=== PATIENT | female | born 1980 | race Hispanic/Latino ===

== ENCOUNTER → 2017-01-13 | Outpatient (CLI) | payer BC | LOC: MW.CHGS 11:31 | PROVIDERS: ATTEND Surgery | DX: N63 Unspecified lump in breast (principal) | CPT/HCPCS: 36415; 85610; 85730 ==

== ENCOUNTER → 2017-01-19 | Outpatient (CLI) | payer BC ==
--- NOTE | 2017-01-19 14:56 | US ---
EXAMINATION: Ultrasound guided left breast biopsy HISTORY: Lump COMPARISON: 12/30/2016 TECHNIQUE: The procedure, risks, and benefits were discussed with the patient. Written informed cons ent was obtained. The overlying area was sterilely prepped and draped. 1% lidocaine was administered for local anesthesia. Using ultrasound guidance a total of 5 14-gauge core biopsies were obtained. The first few samples demonstrated a white cloudy liquid, likely representing a galactocele. A clip was placed following the procedure. IMPRESSION: Successful ultrasound-guided biopsy of a left breast mass.
== END | disposition home or self-care (01) ==
LOC: MW.US 10:20
PROVIDERS: ATTEND Surgery
DX: N60.42 Mammary duct ectasia of left breast (principal); N60.12 Diffuse cystic mastopathy of left breast
CPT/HCPCS: 19083-LT; 88305

== ENCOUNTER 2020-03-05 08:57 | Day surgery (SDC) | payer OTHER ==
[~2020-03-05 08:57] MED LIST: Lactated Ringers 1,000 ML IV SCH; Sodium Chloride 0.9% 10 ML SDV IV PRN; Sodium Chloride 0.9% 10 ML Syringe FLUSH PRN; Sodium Chloride 0.9% 2.5 ML Syringe FLUSH PRN
[2020-03-05 09:36] VITALS: BP 113/72; PULSE 57
--- NOTE | 2020-03-05 12:35 | PCM.SN.2 ---
- Free Text/Narrative Note: Patient is a 39 year old female who presented today for a diagnostic EGD and colonoscopy. She has known low platelets. Previously she stated that she had been worked up by a high school business teacher who did not come up with a diagnosis. I agreed to schedule the case, but we would get a CBC prior to the case. She had a CBC yesterday. This showed a plt count of 53. It has never been this low before. I talked to our blood bank. Platelets would have to be ordered and would be here the next day. She has not followed up with her high school business teacher in some time. After discussing this, the patient remembered that she was told she had "ITP". I visited with the patient. She is at risk of bleeding from her biopsy sites and with no platelets to give her in house, this could have serious bleeding complications. I offered to order the platelets today and perform the procedure tomorrow with platelets running. The patient declined having the procedure done at this time or in the near future. Instead, we discussed starting a PPI in case her abdominal discomfort in case this is gastritis and getting a HIDA scan to rule out biliary dyskinesia. She will also need to be seen by her high school business teacher for follow up. I will then follow up with her in clinic afterwards. I prescribed omeprazole 20mg daily for one month. Will coordinate with my nurse for hematology referral and HIDA scan.
== END 2020-03-05 10:40 | disposition home or self-care (01) ==
LOC: MW.SDS 08:57
PROVIDERS: ATTEND Surgery
DX: D69.6 Thrombocytopenia, unspecified (principal); Z53.09 Procedure and treatment not carried out because of other contraindication
CPT/HCPCS: 81025; J7120

== ENCOUNTER 2021-06-11 05:00 | Inpatient (IN) | payer OTHER ==
[2021-06-11] MEDS ORDERED: Terbutaline 1 MG/ML SDV SUBCUT PRN (05:37)
[2021-06-11] MEDS ORDERED: Sodium Chloride 0.9% 10 ML SDV IV PRN (05:39)
[2021-06-11] MEDS ORDERED: Carboprost Tromethamine 250 MCG/1 ML Amp IM PRN (05:39)
[2021-06-11] MEDS ORDERED: Methylergonovine 0.2 MG/1 ML Amp IM PRN ×2 (05:39→18:01)
[2021-06-11] MEDS ORDERED: Tranexamic Acid 1,000 MG in Sodium Chloride 0.9% 100 ML IV PRN ×2 (05:39→18:01)
[2021-06-11] MEDS ORDERED: Water For Irrigation,Sterile 1,000 ML Container IRR PRN (05:39)
[2021-06-11] MEDS ORDERED: Lidocaine 1% 50 ML MDV INJECT PRN (05:39)
[2021-06-11] MEDS ORDERED: Sodium Chloride 0.9% 10 ML Syringe FLUSH PRN (05:39)
[2021-06-11] MEDS ORDERED: Nalbuphine 10 MG/1 ML Vial IVPUSH PRN (05:39)
[2021-06-11] MEDS ORDERED: Sodium Chloride 0.9% 2.5 ML Syringe FLUSH PRN (05:39)
[2021-06-11] MEDS ORDERED: Ondansetron 4 MG/2 ML SDV IVPUSH PRN (05:39)
[2021-06-11] MEDS ORDERED: Misoprostol 200 MCG Tab PO PRN (05:39)
[2021-06-11] MEDS ORDERED: Butorphanol 1 MG/ML SDV IVPUSH PRN (05:39)
[2021-06-11] MEDS ORDERED: Oxytocin/0.9 % Sodium Chloride 30 UNIT/500 ML BAG IV SCH ×2 (05:45)
[2021-06-11] MEDS ORDERED: Misoprostol 25 MCG (1/4 of 100 MCG) Tab VAG PRN ×2 (06:00→12:00)
[2021-06-11] MEDS: Lactated Ringers 1,000 ML IV SCH ×2 (06:52→08:18)
[2021-06-11] MEDS ORDERED: Ropivacaine HCl/PF 200 ML ONE (09:22)
--- NOTE | 2021-06-11 09:48 | PCM.PREANE ---
Preanesthetic Assessment - Anesthesia/Transfusion/Family Hx Anesthesia History: Prior Anesthesia Without Reaction Family History of Anesthesia Reaction: No Transfusion History: No Prior Transfusion(s) - Review of Systems General: No Symptoms Pulmonary: No Symptoms Cardiovascular: No Symptoms Gastrointestinal: No Symptoms Neurological: No Symptoms Other: Reports: None - Physical Assessment Height: 5 ft 2 in Weight: 228 lb ASA Class: 2 Mental Status: Alert & Oriented x3 Airway Class: Mallampati = 3 Dentition: Reports: Normal Dentition ROM/Head Extension: Full Lungs: Clear to Auscultation, Normal Respiratory Effort Cardiovascular: Regular Rate, Regular Rhythm - Lab Values: Laboratory Last Values WBC 11.59 K/uL (4.0-11.0) H 06/11/21 06:33 RBC 4.21 M/uL (4.30-5.90) L 06/11/21 06:33 Hgb 12.5 g/dL (12.0-16.0) 06/11/21 06:33 Hct 36.8 % (36.0-46.0) 06/11/21 06:33 MCV 87.4 fL (80.0-98.0) 06/11/21 06:33 MCH 29.7 pg (27.0-32.0) 06/11/21 06:33 MCHC 34.0 g/dL (31.0-37.0) 06/11/21 06:33 RDW Std Deviation 44.6 fl (28.0-62.0) 06/11/21 06:33 RDW Coeff of Alli 14 % (11.0-15.0) 06/11/21 06:33 Plt Count 112 K/uL (150-400) L 06/11/21 06:33 MPV 12.70 fL (7.40-12.00) H 06/11/21 06:33 Nucleated RBC % 0.2 /100WBC 06/11/21 06:33 Nucleated RBCs # 0 K/uL 06/11/21 06:33 SARS-CoV-2 RNA (JAYCOB) NEGATIVE (NEGATIVE) 06/11/21 06:10 Blood Type O POSITIVE 06/11/21 06:33 Antibody Screen NEGATIVE 06/11/21 06:33 - Allergies Allergies/Adverse Reactions: Allergies Allergy/AdvReac Type Severity Reaction Status Date / Time almond Allergy Mild Other Verified 06/11/21 07:41 avacado Allergy Mild Other Uncoded 06/11/21 07:41 - Blood Blood Available: Yes Product(s) Available: PRBC, FFP, Platelets - Anesthesia Plan Pre-Op Medication Ordered: None - Acknowledgements Anesthesia Type Planned: Epidural Pt an Appropriate Candidate for the Planned Anesthesia: Yes Alternatives and Risks of Anesthesia Discussed w Pt/Guardian: Yes Pt/Guardian Understands and Agrees with Anesthesia Plan: Yes PreAnesthesia Questionnaire - Past Health History Medical/Surgical History: Denies Medical/Surgical History HEENT History: Reports: Other (See Below) Other HEENT History: wears glasses Cardiovascular History: Reports: None Respiratory History: Reports: None Gastrointestinal History: Reports: Other (See Below) Other Gastrointestinal History: occasional heartburn Genitourinary History: Reports: None LAMINATION SPINNER History: Reports: Endometriosis, Musculoskeletal History: Reports: None Neurological History: Reports: None Psychiatric History: Reports: None Endocrine/Metabolic History: Reports: Hypothyroidism, Obesity/BMI 30+ Hematologic History: Reports: Idiopathic Thrombocytopenia Immunologic History: Reports: None Oncologic (Cancer) History: Reports: None Dermatologic History: Reports: None - Infectious Disease History Infectious Disease History: Reports: None - Past Surgical History Head Surgeries/Procedures: Reports: None HEENT Surgical History: Reports: None Cardiovascular Surgical History: Reports: None Respiratory Surgical History: Reports: None GI Surgical History: Reports: Cholecystectomy Other GI Surgeries/Procedures: Cholecystectomy - 2011 Female Surgical History: Reports: Other (See Below) Other Female Surgeries/Procedures: Endometriosis Endocrine Surgical History: Reports: None Neurological Surgical History: Reports: None Musculoskeletal Surgical History: Reports: None Oncologic Surgical History: Reports: None Dermatological Surgical History: Reports: None - HOME MEDS Home Medications: Home Meds Levothyroxine 150 mcg PO DAILY 02/29/20 [History] Pnv No.95/Ferrous Fum/Folic AC [ Vitamin Tablet] 1 each PO DAILY 06/11/21 [History] - CURRENT (IN HOUSE) MEDS Current Meds: Current Medications Butorphanol Tartrate (Butorphanol 1 Mg/Ml Sdv) 1 mg IVPUSH Q1H PRN PRN Reason: Pain (severe 7-10) Carboprost Tromethamine (Carboprost Tromethamine 250 Mcg/1 Ml Amp) 250 mcg IM ASDIRECTED PRN PRN Reason: Post Hemorrhage Oxytocin/Sodium Chloride (Oxytocin 30 Unit/500 Ml-Ns) 30 unit in 500 mls @ 2 ml s/hr IV TITRATE VANITA; Protocol Last Titration: 06/11/21 08:40 Dose: 4 munits/min, 4 mls/hr Documented by: Lactated Ringer's (Ringers, Lactated) 1,000 mls @ 150 mls/hr IV ASDIRECTED VANITA Last Admin: 06/11/21 08:18 Dose: 150 mls/hr Documented by: Oxytocin/Sodium Chloride (Oxytocin 30 Unit/500 Ml-Ns) 30 unit in 500 mls @ 999 mls/hr IV TITRATE VANITA Tranexamic Acid 1,000 mg/ (Sodium Chloride) 110 mls @ 660 mls/hr IV ONETIME PRN PRN Reason: Bleeding Lidocaine HCl (Lidocaine 1% 50 Ml Mdv) 50 ml INJECT ONETIME PRN PRN Reason: Laceration repair Methylergonovine Maleate (Methylergonovine 0.2 Mg/1 Ml Amp) 0.2 mg IM ASDIRECTED PRN PRN Reason: Post Hemorrhage Misoprostol (Misoprostol 25 Mcg (1/4 Of 100 Mcg) Tab) 25 mcg VAG ONETIME PRN PRN Reason: Cervical Ripening Misoprostol (Misoprostol 25 Mcg (1/4 Of 100 Mcg) Tab) 25 mcg VAG Q4H PRN PRN Reason: Cervical Ripening Misoprostol (Misoprostol 200 Mcg Tab) 200 mcg PO ONETIME PRN PRN Reason: Post Hemorrhage Nalbuphine HCl (Nalbuphine 10 Mg/1 Ml Vial) 10 mg IVPUSH Q1H PRN PRN Reason: Pain (severe 7-10) Ondansetron HCl (Ondansetron 4 Mg/2 Ml Sdv) 4 mg IVPUSH Q6H PRN PRN Reason: Nausea/Vomiting Sodium Chloride (Sodium Chloride 0.9% 10 Ml Syringe) 10 ml FLUSH ASDIRECTED PRN PRN Reason: Keep Vein Open Sodium Chloride (Sodium Chloride 0.9% 2.5 Ml Syringe) 2.5 ml FLUSH ASDIRECTED PRN PRN Reason: Keep Vein Open Sodium Chloride (Sodium Chloride 0.9% 10 Ml Sdv) 10 ml IV ASDIRECTED PRN PRN Reason: IV Use Sterile Water (Water For Irrigation,Sterile 1,000 Ml Container) 1,000 ml IRR ASDIRECTED PRN PRN Reason: delivery Terbutaline Sulfate (Terbutaline 1 Mg/Ml Sdv) 0.25 mg SUBCUT ASDIRECTED PRN PRN Reason: Tacysystole Discontinued Medications Ropivacaine (Naropin 0.2%) Confirm Administered Dose 200 mls @ as directed .ROUTE .[employer]-MED ONE Stop: 06/11/21 09:23 - Pre-Procedure Checklist Attending Provider Aware: Yes Chart Reviewed: Yes Consent Signed: Yes Labs Reviewed: Yes VS/FHR Reviewed: Yes Patient Identification Confirmation Method: Reports: Verbal Patient Pt an Appropriate Candidate for the Planned Anesthesia: Yes Alternatives and Risks of Anesthesia Discussed w Pt/Guardian: Yes - Procedure Procedure Start Date: 06/11/21 Procedure Start Time: 09:[address]: Reports: Blood Pressure, Heart Rate, SPO2 Functional IV: Yes Safety Measures: Reports: Patient Identified, Procedure Verified, Site Verified, Procedure Time Out Patient Position: Reports: Sitting Prep: Reports: Betadine x3, Sterile Drape Local Anesthetic: Reports: Intradermal Wheal w Lidocaine 1% Regional Placement Level: Reports: L3-4 Needle: Reports: 17 g Touhy Approach: Reports: Midline Technique: Reports: ABHINAV Plastic Syringe Parasthesia: Reports: None Fluid Obtained: Reports: None Test Dose Time: 09:32 Test Dose Medication: Reports: Lidocaine 1.5% w Epinephrine 1:200,000 Test Dose Response: Reports: Negative Loading Dose Time: 09:30 Loading Dose Medication: bupivicaine 0.25% 10cc Loading Dose Patient Position: sitting Continuous Infusion Start Time: 09:35 Continuous Infusion Medication: ropivicaine 0.2% Continuous Infusion Rate: 16 Continuous Infusion PCS Bolus Option: 4 VS and FHR Monitored in Unit Post Placement: Yes Procedure End Date: 06/11/21 Procedure End Time: 10:27
--- NOTE | 2021-06-11 09:50 | PCM.POSTAN ---
POST ANESTHESIA ASSESSMENT - MENTAL STATUS Mental Status: Alert, Oriented - RESPIRATORY Respiratory Status: Respiratory Rate WNL, Airway Patent, O2 Saturation Stable - CARDIOVASCULAR CV Status: Pulse Rate WNL, Blood Pressure Stable - GASTROINTESTINAL GI Status: No Symptoms - POST OP HYDRATION Hydration Status: Adequate & Stable
[2021-06-11] MEDS ORDERED: Docusate Sodium 100 MG Cap PO PRN (18:01)
[2021-06-11] MEDS ORDERED: Ibuprofen 400 MG Tab PO PRN (18:01)
[2021-06-11] MEDS ORDERED: Witch Hazel Medicated Pads 40/Jar TOP PRN (18:01)
[2021-06-11] MEDS ORDERED: Lanolin 100% Cream 7 GM Tube TOP PRN (18:01)
[2021-06-11] MEDS ORDERED: Bisacodyl 10 MG Supp RECTAL PRN (18:01)
[2021-06-11] MEDS ORDERED: Acetaminophen 500 MG Tab PO PRN (18:01)
[2021-06-11] MEDS ORDERED: Benzocaine/Menthol 20%-0.5% Spray 78 GM Cannister TOP PRN (18:01)
[2021-06-11] MEDS ORDERED: Ibuprofen 800 MG Tab PO PRN (18:01)
--- NOTE | 2021-06-11 18:03 | PCM.DEL ---
L & D Note - General Info Date of Service: 06/11/21 Mother's Due Date: 06/13/21 - Delivery Note Labor: Augmented by Oxytocin, Induced by Oxytocin Delivery Outcome: Livebirth Delivery Method: Spontaneous Vaginal Delivery-Single Presentation: Left Occiput Anterior ([place]) Nuchal Cord: Reduced Anesthesia Type: Epidural Amniotic Fluid Description: Clear Episiotomy Type: None Laceration: None Placenta: Intact, Spontaneous Estimated Blood Loss: 200 Resuscitation Needed: No : Bulb Syringe Score 1 min: 8 Score 5 min: 9 Delivery Comments (Free Text/Narrative):: 40-year-old female at 39w5d for scheduled induction of labor s/p uncomplicated vaginal delivery. complicated by advanced maternal age and thrombocytopenia. GBS negative. Viable male. Apgars 8 and 9, weight 3290 grams. - General Info Date of Service: 06/11/21 - Patient Data Weight - Most Recent: 103.419 kg Lab Results Last 24 Hours: Laboratory Results - last 24 hr 06/11/21 06/11/21 06/11/21 Range/Units 06:10 06:33 06:33 WBC 11.59 H (4.0-11.0) K/uL RBC 4.21 L (4.30-5.90) M/uL Hgb 12.5 (12.0-16.0) g/dL Hct 36.8 (36.0-46.0) % MCV 87.4 (80.0-98.0) fL MCH 29.7 (27.0-32.0) pg MCHC 34.0 (31.0-37.0) g/dL RDW Std Deviation 44.6 (28.0-62.0) fl RDW Coeff of Alli 14 (11.0-15.0) % Plt Count 112 L (150-400) K/uL MPV 12.70 H (7.40-12.00) fL Nucleated RBC % 0.2 /100WBC Nucleated RBCs # 0 K/uL SARS-CoV-2 RNA (JAYCOB) NEGATIVE (NEGATIVE) Blood Type O POSITIVE Antibody Screen NEGATIVE Med Orders - Current: Current Medications Butorphanol Tartrate (Butorphanol 1 Mg/Ml Sdv) 1 mg IVPUSH Q1H PRN PRN Reason: Pain (severe 7-10) Carboprost Tromethamine (Carboprost Tromethamine 250 Mcg/1 Ml Amp) 250 mcg IM ASDIRECTED PRN PRN Reason: Post Hemorrhage Oxytocin/Sodium Chloride (Oxytocin 30 Unit/500 Ml-Ns) 30 unit in 500 mls @ 2 mls/hr IV TITRATE VANITA; Protocol Last Titration: 06/11/21 11:42 Dose: 14 munits/min, 14 mls/hr Documented by: Lactated Ringer's (Ringers, Lactated) 1,000 mls @ 150 mls/hr IV ASDIRECTED VANITA Last Admin: 06/11/21 08:18 Dose: 150 mls/hr Documented by: Oxytocin/Sodium Chloride (Oxytocin 30 Unit/500 Ml-Ns) 30 unit in 500 mls @ 999 mls/hr IV TITRATE VANITA Tranexamic Acid 1,000 mg/ (Sodium Chloride) 110 mls @ 660 mls/hr IV ONETIME PRN PRN Reason: Bleeding Lidocaine HCl (Lidocaine 1% 50 Ml Mdv) 50 ml INJECT ONETIME PRN PRN Reason: Laceration repair Methylergonovine Maleate (Methylergonovine 0.2 Mg/1 Ml Amp) 0.2 mg IM ASDIRECTED PRN PRN Reason: Post Hemorrhage Misoprostol (Misoprostol 25 Mcg (1/4 Of 100 Mcg) Tab) 25 mcg VAG ONETIME PRN PRN Reason: Cervical Ripening Misoprostol (Misoprostol 25 Mcg (1/4 Of 100 Mcg) Tab) 25 mcg VAG Q4H PRN PRN Reason: Cervical Ripening Misoprostol (Misoprostol 200 Mcg Tab) 200 mcg PO ONETIME PRN PRN Reason: Post Hemorrhage Nalbuphine HCl (Nalbuphine 10 Mg/1 Ml Vial) 10 mg IVPUSH Q1H PRN PRN Reason: Pain (severe 7-10) Ondansetron HCl (Ondansetron 4 Mg/2 Ml Sdv) 4 mg IVPUSH Q6H PRN PRN Reason: Nausea/Vomiting Sodium Chloride (Sodium Chloride 0.9% 10 Ml Syringe) 10 ml FLUSH ASDIRECTED PRN PRN Reason: Keep Vein Open Sodium Chloride (Sodium Chloride 0.9% 2.5 Ml Syringe) 2.5 ml FLUSH ASDIRECTED PRN PRN Reason: Keep Vein Open Sodium Chloride (Sodium Chloride 0.9% 10 Ml Sdv) 10 ml IV ASDIRECTED PRN PRN Reason: IV Use Sterile Water (Water For Irrigation,Sterile 1,000 Ml Container) 1,000 ml IRR ASDIRECTED PRN PRN Reason: delivery Terbutaline Sulfate (Terbutaline 1 Mg/Ml Sdv) 0.25 mg SUBCUT ASDIRECTED PRN PRN Reason: Tacysystole Discontinued Medications Ropivacaine (Naropin 0.2%) Confirm Administered Dose 200 mls @ as directed .ROUTE .[facility]-MED ONE Stop: 06/11/21 09:23 - Problem List & Annotations (1) Vaginal delivery SNOMED Code(s): 534573815 Code(s): O80 - ENCOUNTER FOR FULL-TERM UNCOMPLICATED DELIVERY Status: Acute Current Visit: Yes - Problem List Review Problem List Initiated/Reviewed/Updated: Yes - Assessment Assessment:: 40-year-old female at 39w5d presents for scheduled induction of labor s/p uncomplicated vaginal delivery. complicated by advanced maternal age and thrombocytopenia. GBS negative. Blood type O+. Platelets 112. Viable male. Apgars 8 and 9, weight 3290 grams. - Plan Plan:: - Fundal checks every 2 hours - Aspirin/tylenol for pain - Regular diet - Encourage ambulation - CBC in the am
--- NOTE | 2021-06-11 21:33 | OR ---
SURGEON: Sofya Serra M.D. DATE OF PROCEDURE: 06/11/2021 PREOPERATIVE DIAGNOSES: A 39 week intrauterine , thrombocytopenia , advanced maternal age. POSTOPERATIVE DIAGNOSES: A 39 week intrauterine , thrombocytopenia, advanced maternal age. PROCEDURES: Pitocin induction of labor, artificial rupture of membranes, term spontaneous vaginal delivery. PRIMARY SURGEON: Sofya Serra M.D. SOCIAL SERVICE TECHNICIAN: JOSE FRANCISCO Templeton. ANESTHESIA: Epidural. ESTIMATED BLOOD LOSS: Less than 300 mL. FINDINGS: Live-born male. scores 8 and 9, weight is pending at the time of dictation. Placenta spontaneous, Schultze intact, with 3 vessels. Perineum intact. COMPLICATIONS: None known. DISPOSITION: Stable to Recovery. BRIEF HISTORY: This is a 40-year-old female, G5, P 3-0-1-3. She presents at 39 weeks' gestation for induction of labor. She has a known history of thrombocytopenia. She has had platelets below 50,000 on a regular basis in the past. At the end of , her platelets have improved to 80,000 to 90,000, and on admission was at 112,000. She has been seeing a supervisor [employer]; however, she became after visit with him. She was offered splenectomy, however, declined. She has had otherwise an uncomplicated care. She is known to be advanced maternal age. She has had recommended testing. However, she has declined her recent biophysical profile. She presents for induction of labor, 3 cm, 50%, -3 station. Pitocin was initiated. She is group B strep negative. She had category 1 heart tones. When she was 4 to 5 cm dilated, she had artificial rupture of membranes with clear fluid noted. She progressed to complete. DESCRIPTION OF PROCEDURE: With the patient in the dorsal lithotomy position, the patient pushed to a 5+ station over 3 contractions. At that time, the head did not proceed over the perineum. Therefore, the patient's head was placed in the supine position. The Gia manoeuvre was performed. Suprapubic pressure was performed, and the shoulder was delivered without significant difficulty, with subsequent delivery of the 's posterior shoulder and body. There was a partial nuchal cord which was reduced. The was handed to the mother in the presence of the nurse attending delivery. The infant is a liveborn male, scores 8 and 9, weight is pending at the time of dictation. After 1 minute, the cord was doubly clamped and cut. Cord blood was collected for cord ABGs as well as routine cord blood sampling. Pitocin was initiated after delivery of the infant to assist with delivery of the placenta, which was delivered spontaneously, Schultze intact, with 3 vessels. Upon inspection of the pelvis and perineum, there were no periurethral, vaginal sidewall, cervical, perineal, or rectal lacerations. EBL is less than 300 mL. There were no complications. Mother and baby remained in LDR in good condition. EDWARD / MANUELA /[id number] ELIZABETH
[2021-06-12] MEDS: Acetaminophen 500 MG Tab PO PRN ×2 (01:13→08:28)
--- NOTE | 2021-06-12 07:29 | PCM.PNPP ---
<Janelle Hopper - Last Filed: 06/12/21 07:42> - General Info Date of Service: 06/12/21 Admission Dx/Problem (Free Text): Induction of labor Subjective Update: Only concern overnight was the anesthesia wearing off. She endorsed anxiety with loss of sensation until midnight. No current concerns. Appears to be doing well. Some light vaginal bleeding. Pain controlled. Ambulating, urinating, and tolerating food well. . - Review of Systems General: Reports: No Symptoms HEENT: Reports: No Symptoms Pulmonary: Reports: No Symptoms Cardiovascular: Reports: No Symptoms Gastrointestinal: Reports: No Symptoms Genitourinary: Reports: No Symptoms Musculoskeletal: Reports: No Symptoms Skin: Reports: No Symptoms Neurological: Reports: No Symptoms Psychiatric: Reports: No Symptoms - General Info Date of Service: 06/12/21 - Patient Data Vital Signs - Most Recent: Last Vital Signs Temp 36.6 C 06/12/21 07:22 Pulse 61 06/12/21 07:22 Resp 18 06/12/21 07:22 BP 114/70 06/12/21 07:22 Pulse Ox 96 06/12/21 07:22 Weight - Most Recent: 103.419 kg I&O - Last 24 Hours: Intake & Output 06/11/21 06/12/21 06/12/21 22:59 06:59 14:59 Output Total 1250 Balance -1250 Lab Results - Last 24 Hours: Laboratory Results - last 24 hr 06/11/21 06/11/21 06/11/21 Range/Units 06:10 06:33 17:28 Hgb (12.0-16.0) g/dL Hct (36.0-46.0) % Cord ABG pH 7.263 (7.18-7.38) Cord ABG Base Excess -9 (-10--2) Cord VBG pH 7.249 L (7.25-7.45) Cord VBG Base Excess -7 (-10--2) SARS-CoV-2 RNA (JAYCOB) NEGATIVE (NEGATIVE) Blood Type O POSITIVE Antibody Screen NEGATIVE 06/12/21 Range/Units 05:47 Hgb 11.2 L (12.0-16.0) g/dL Hct 32.8 L (36.0-46.0) % Cord ABG pH (7.18-7.38) Cord ABG Base Excess (-10--2) Cord VBG pH (7.25-7.45) Cord VBG Base Excess (-10--2) SARS-CoV-2 RNA (JAYCOB) (NEGATIVE) Blood Type Antibody Screen Med Orders - Current: Current Medications Acetaminophen (Acetaminophen 500 Mg Tab) 500 mg PO Q4H PRN PRN Reason: Pain (mild 1-3) Acetaminophen (Acetaminophen 500 Mg Tab) 1,000 mg PO Q4H PRN PRN Reason: Pain (mild 1-3) Last Admin: 06/12/21 01:13 Dose: 1,000 mg Documented by: Benzocaine/Menthol (Benzocaine/Menthol 20%-0.5% [place] 78 Gm Cannister) 78 gm TOP ASDIRECTED PRN PRN Reason: Perineal Comfort Measure Last Admin: 06/11/21 20:21 Dose: 1 can Documented by: Bisacodyl (Bisacodyl 10 Mg Supp) 10 mg RECTAL ONETIME PRN PRN Reason: Constipation Docusate Sodium (Docusate Sodium 100 Mg Cap) 100 mg PO Q12H PRN PRN Reason: Constipation Emollient Ointment (Lanolin 100% Cream 7 Gm Tube) 0 gm TOP ASDIRECTED PRN PRN Reason: Sore Nipples Last Admin: 06/11/21 20:21 Dose: 7 gm Documented by: Tranexamic Acid 1,000 mg/ (Sodium Chloride) 110 mls @ 660 mls/hr IV ONETIME PRN PRN Reason: Bleeding Ibuprofen (Ibuprofen 400 Mg Tab) 400 mg PO Q4H PRN PRN Reason: Pain (mild 1-3) Ibuprofen (Ibuprofen 800 Mg Tab) 800 mg PO Q6H PRN PRN Reason: Pain (mild 1-3) Last Admin: 06/11/21 20:22 Dose: 800 mg Documented by: Levothyroxine Sodium (Levothyroxine 150 Mcg Tab) 150 mcg PO DAILY VANITA Methylergonovine Maleate (Methylergonovine 0.2 Mg/1 Ml Amp) 0.2 mg IM ONETIME PRN PRN Reason: Excessive Vaginal Bleeding Prenat Multivit/[place]/Iron/Folic Ac ( Multivitamin With Calcium/Folic Acid/Iron Tab) 1 each PO DAILY VANITA Mahin Monica (Witch Monica Medicated Pads 40/Jar) 1 pad TOP ASDIRECTED PRN PRN Reason: comfort care Last Admin: 06/11/21 20:22 Dose: 1 tub Documented by: Discontinued Medications Butorphanol Tartrate (Butorphanol 1 Mg/Ml Sdv) 1 mg IVPUSH Q1H PRN PRN Reason: Pain (severe 7-10) Carboprost Tromethamine (Carboprost Tromethamine 250 Mcg/1 Ml Amp) 250 mcg IM ASDIRECTED PRN PRN Reason: Post Hemorrhage Oxytocin/Sodium Chloride (Oxytocin 30 Unit/500 Ml-Ns) 30 unit in 500 mls @ 2 mls/hr IV TITRATE VANITA; Protocol Last Titration: 06/11/21 17:35 Dose: 500 munits/min, 500 mls/hr Documented by: Lactated Ringer's (Ringers, Lactated) 1,000 mls @ 150 mls/hr IV ASDIRECTED VANITA Last Admin: 06/11/21 08:18 Dose: 150 mls/hr Documented by: Oxytocin/Sodium Chloride (Oxytocin 30 Unit/500 Ml-Ns) 30 unit in 500 mls @ 999 mls/hr IV TITRATE VANITA Tranexamic Acid 1,000 mg/ (Sodium Chloride) 110 mls @ 660 mls/hr IV ONETIME PRN PRN Reason: Bleeding Ropivacaine (Naropin 0.2%) Confirm Administered Dose 200 mls @ as directed .ROUTE .[facility] Stop: 06/11/21 09:23 Lidocaine HCl (Lidocaine 1% 50 Ml Mdv) 50 ml INJECT ONETIME PRN PRN Reason: Laceration repair Methylergonovine Maleate (Methylergonovine 0.2 Mg/1 Ml Amp) 0.2 mg IM ASDIRECTED PRN PRN Reason: Post Hemorrhage Misoprostol (Misoprostol 25 Mcg (1/4 Of 100 Mcg) Tab) 25 mcg VAG ONETIME PRN PRN Reason: Cervical Ripening Misoprostol (Misoprostol 25 Mcg (1/4 Of 100 Mcg) Tab) 25 mcg VAG Q4H PRN PRN Reason: Cervical Ripening Misoprostol (Misoprostol 200 Mcg Tab) 200 mcg PO ONETIME PRN PRN Reason: Post Hemorrhage Nalbuphine HCl (Nalbuphine 10 Mg/1 Ml Vial) 10 mg IVPUSH Q1H PRN PRN Reason: Pain (severe 7-10) Ondansetron HCl (Ondansetron 4 Mg/2 Ml Sdv) 4 mg IVPUSH Q6H PRN PRN Reason: Nausea/Vomiting Sodium Chloride (Sodium Chloride 0.9% 10 Ml Syringe) 10 ml FLUSH ASDIRECTED PRN PRN Reason: Keep Vein Open Sodium Chloride (Sodium Chloride 0.9% 2.5 Ml Syringe) 2.5 ml FLUSH ASDIRECTED PRN PRN Reason: Keep Vein Open Sodium Chloride (Sodium Chloride 0.9% 10 Ml Sdv) 10 ml IV ASDIRECTED PRN PRN Reason: IV Use Sterile Water (Water For Irrigation,Sterile 1,000 Ml Container) 1,000 ml IRR ASDIRECTED PRN PRN Reason: delivery Terbutaline Sulfate (Terbutaline 1 Mg/Ml Sdv) 0.25 mg SUBCUT ASDIRECTED PRN PRN Reason: Tacysystole - Infant Interaction Infant Disposition, : [place] to Nursery Infant Feeding: Breastfed ; Nursed Well Support Person: , Other (see below) (Daughter) - Recovery Exam Fundal Tone: Firm Fundal Level: 1 Fingerbreadths Below Umbilicus Fundal Placement: Midline Lochia Amount: Scant Lochia Color: Rubra/Red Perineum Description: Intact, Minimal Bruising/Swelling Episiotomy/Laceration: None Bladder Status: Voiding Urinary Elimination: Voided - Exam General: Alert, Oriented Neck: Supple Lungs: Clear to Auscultation, Normal Respiratory Effort Cardiovascular: Regular Rate, Regular Rhythm GI/Abdominal Exam: Normal Bowel Sounds, Soft, Non-Tender Extremities: Normal Inspection, Normal Range of Motion, Non-Tender, No Pedal Edema Skin: Warm Neurological: No New Focal Deficit Psy/Mental Status: Alert, Normal Affect, Normal Mood - Problem List & Annotations (1) Vaginal delivery SNOMED Code(s): 666508405 Code(s): O80 - ENCOUNTER FOR FULL-TERM UNCOMPLICATED DELIVERY Status: Acute Current Visit: Yes - Problem List Review Problem List Initiated/Reviewed/Updated: Yes - Assessment Assessment:: 40-year-old female at 39w5d presents for scheduled induction of labor s/p uncomplicated vaginal delivery. complicated by advanced maternal age and thrombocytopenia. GBS negative. Blood type O+. Platelets 112. Viable male. Apgars 8 and 9, weight 3290 grams. - Plan Plan:: - Aspirin/tylenol for pain - Regular diet - Encourage ambulation - Can likely discharge home tonight pending traffic recorder clearance <Sofya Serra - Last Filed: 06/12/21 08:08> - Patient Data Vital Signs - Most Recent: Last Vital Signs Temp 36.6 C 06/12/21 07:22 Pulse 61 06/12/21 07:22 Resp 18 06/12/21 07:22 BP 114/70 06/12/21 07:22 Pulse Ox 96 06/12/21 07:22 I&O - Last 24 Hours: Intake & Output 06/11/21 06/12/21 06/12/21 22:59 06:59 14:59 Output Total 1250 Balance -1250 Lab Results - Last 24 Hours: Laboratory Results - last 24 hr 06/11/21 06/11/21 06/12/21 Range/Units 06:33 17:28 05:47 Hgb 11.2 L (12.0-16.0) g/dL Hct 32.8 L (36.0-46.0) % Cord ABG pH 7.263 (7.18-7.38) Cord ABG Base Excess -9 (-10--2) Cord VBG pH 7.249 L (7.25-7.45) Cord VBG Base Excess -7 (-10--2) Blood Type O POSITIVE Antibody Screen NEGATIVE Med Orders - Current: Current Medications Acetaminophen (Acetaminophen 500 Mg Tab) 500 mg PO Q4H PRN PRN Reason: Pain (mild 1-3) Acetaminophen (Acetaminophen 500 Mg Tab) 1,000 mg PO Q4H PRN PRN Reason: Pain (mild 1-3) Last Admin: 06/12/21 01:13 Dose: 1,000 mg Documented by: Benzocaine/Menthol (Benzocaine/Menthol 20%-0.5% [place] 78 Gm Cannister) 78 gm TOP ASDIRECTED PRN PRN Reason: Perineal Comfort Measure Last Admin: 06/11/21 20:21 Dose: 1 can Documented by: Bisacodyl (Bisacodyl 10 Mg Supp) 10 mg RECTAL ONETIME PRN PRN Reason: Constipation Docusate Sodium (Docusate Sodium 100 Mg Cap) 100 mg PO Q12H PRN PRN Reason: Constipation Emollient Ointment (Lanolin 100% Cream 7 Gm Tube) 0 gm TOP ASDIRECTED PRN PRN Reason: Sore Nipples Last Admin: 06/11/21 20:21 Dose: 7 gm Documented by: Tranexamic Acid 1,000 mg/ (Sodium Chloride) 110 mls @ 660 mls/hr IV ONETIME PRN PRN Reason: Bleeding Ibuprofen (Ibuprofen 400 Mg Tab) 400 mg PO Q4H PRN PRN Reason: Pain (mild 1-3) Ibuprofen (Ibuprofen 800 Mg Tab) 800 mg PO Q6H PRN PRN Reason: Pain (mild 1-3) Last Admin: 06/11/21 20:22 Dose: 800 mg Documented by: Levothyroxine Sodium (Levothyroxine 150 Mcg Tab) 150 mcg PO DAILY VANITA Methylergonovine Maleate (Methylergonovine 0.2 Mg/1 Ml Amp) 0.2 mg IM ONETIME PRN PRN Reason: Excessive Vaginal Bleeding Prenat Multivit/Family Life Educator/Iron/Folic Ac ( Multivitamin With Calcium/Folic Acid/Iron Tab) 1 each PO DAILY VANITA Mahin Anderson (Witch Monica Medicated Pads 40/Jar) 1 pad TOP ASDIRECTED PRN PRN Reason: comfort care Last Admin: 06/11/21 20:22 Dose: 1 tub Documented by: Discontinued Medications Butorphanol Tartrate (Butorphanol 1 Mg/Ml Sdv) 1 mg IVPUSH Q1H PRN PRN Reason: Pain (severe 7-10) Carboprost Tromethamine (Carboprost Tromethamine 250 Mcg/1 Ml Amp) 250 mcg IM ASDIRECTED PRN PRN Reason: Post Hemorrhage Oxytocin/Sodium Chloride (Oxytocin 30 Unit/500 Ml-Ns) 30 unit in 500 mls @ 2 mls/hr IV TITRATE VANITA; Protocol Last Titration: 06/11/21 17:35 Dose: 500 munits/min, 500 mls/hr Documented by: Lactated Ringer's (Ringers, Lactated) 1,000 mls @ 150 mls/hr IV ASDIRECTED VANITA Last Admin: 06/11/21 08:18 Dose: 150 mls/hr Documented by: Oxytocin/Sodium Chloride (Oxytocin 30 Unit/500 Ml-Ns) 30 unit in 500 mls @ 999 mls/hr IV TITRATE VANITA Tranexamic Acid 1,000 mg/ (Sodium Chloride) 110 mls @ 660 mls/hr IV ONETIME PRN PRN Reason: Bleeding Ropivacaine (Naropin 0.2%) Confirm Administered Dose 200 mls @ as directed .ROUTE .[facility] Stop: 06/11/21 09:23 Lidocaine HCl (Lidocaine 1% 50 Ml Mdv) 50 ml INJECT ONETIME PRN PRN Reason: Laceration repair Methylergonovine Maleate (Methylergonovine 0.2 Mg/1 Ml Amp) 0.2 mg IM ASDIRECTED PRN PRN Reason: Post Hemorrhage Misoprostol (Misoprostol 25 Mcg (1/4 Of 100 Mcg) Tab) 25 mcg VAG ONETIME PRN PRN Reason: Cervical Ripening Misoprostol (Misoprostol 25 Mcg (1/4 Of 100 Mcg) Tab) 25 mcg VAG Q4H PRN PRN Reason: Cervical Ripening Misoprostol (Misoprostol 200 Mcg Tab) 200 mcg PO ONETIME PRN PRN Reason: Post Hemorrhage Nalbuphine HCl (Nalbuphine 10 Mg/1 Ml Vial) 10 mg IVPUSH Q1H PRN PRN Reason: Pain (severe 7-10) Ondansetron HCl (Ondansetron 4 Mg/2 Ml Sdv) 4 mg IVPUSH Q6H PRN PRN Reason: Nausea/Vomiting Sodium Chloride (Sodium Chloride 0.9% 10 Ml Syringe) 10 ml FLUSH ASDIRECTED PRN PRN Reason: Keep Vein Open Sodium Chloride (Sodium Chloride 0.9% 2.5 Ml Syringe) 2.5 ml FLUSH ASDIRECTED PRN PRN Reason: Keep Vein Open Sodium Chloride (Sodium Chloride 0.9% 10 Ml Sdv) 10 ml IV ASDIRECTED PRN PRN Reason: IV Use Sterile Water (Water For Irrigation,Sterile 1,000 Ml Container) 1,000 ml IRR ASDIRECTED PRN PRN Reason: delivery Terbutaline Sulfate (Terbutaline 1 Mg/Ml Sdv) 0.25 mg SUBCUT ASDIRECTED PRN PRN Reason: Tacysystole - Problem List Review Problem List Initiated/Reviewed/Updated: Yes - My Orders Last 24 Hours: My Active Orders 06/11/21 Dinner Regular Diet [DIET] 06/11/21 18:01 Acetaminophen [Tylenol Extra Strength] 1,000 mg PO Q4H PRN Acetaminophen [Tylenol Extra Strength] 500 mg PO Q4H PRN Benzocaine/Menthol [Dermoplast Pain Relief 20%-0.5% [place]] 78 gm TOP ASDIRECTED PRN Docusate Sodium [Colace] 100 mg PO Q12H PRN Ibuprofen [Motrin] 400 mg PO Q4H PRN Ibuprofen [Motrin] 800 mg PO Q6H PRN Lanolin [Lansinoh HPA] See Dose Instructions TOP ASDIRECTED PRN Methylergonovine [Methergine] 0.2 mg IM ONETIME PRN Tranexamic Acid [Cyklokapron] 1,000 mg Sodium Chloride 0.9% [Normal Saline] 100 ml IV ONETIME bisacodyL [Dulcolax] 10 mg RECTAL ONETIME PRN witch Monica [Tucks] 1 pad TOP ASDIRECTED PRN Resuscitation Status Routine 06/11/21 18:02 Patient Status [ADT] Routine May Shower [RC] ASDIRECTED Up ad Jaky [RC] ASDIRECTED Vital Signs [RC] PER UNIT ROUTINE Assess Lochia [WOMSER] Per Unit Routine Assess Uterine Involution [WOMSER] Per Unit Routine Perineal Care [OM.PC] Per Unit Routine Peripheral IV Discontinue [OM.PC] Routine 06/12/21 09:00 Levothyroxine 150 mcg PO DAILY Vit with Ca/FA/Iron [ Plus Iron] 1 each PO DAILY - Plan Plan:: Patient seen and examined by me and I agree with above except no aspirin for pain due to thrombocytopenia.
[2021-06-12] MEDS ORDERED: Prenatal Multivitamin with Calcium/Folic Acid/Iron Tab PO SCH (09:00)
[2021-06-12] MEDS ORDERED: Levothyroxine 150 MCG Tab PO SCH (09:00)
[2021-06-12 16:51] VITALS: BP 117/65; PULSE 70
== END 2021-06-12 19:25 | disposition home or self-care (01) | DRG 806 ==
LOC: MW.OBCHECK 05:00 → MW.OB 05:11 → MW.OBCHECK 05:39 → OBSVTOIN 17:28 → MW.OB 06-12 00:03
PROVIDERS: ADMIT Obstetrics & Gynecology; ATTEND Obstetrics & Gynecology
PROC: 10E0XZZ Delivery of Products of Conception, External Approach (ICD-10-PCS; principal; 2021-06-11)
PROC: 10907ZC Drainage of Amniotic Fluid, Therapeutic from Products of Conception, Via Natural or Artificial Opening (ICD-10-PCS; 2021-06-11)
PROC: 3E033VJ Introduction of Other Hormone into Peripheral Vein, Percutaneous Approach (ICD-10-PCS; 2021-06-11)
DX: O99.12 Other diseases of the blood and blood-forming organs and certain disorders involving the immune mechanism complicating childbirth (principal); D69.3 Immune thrombocytopenic purpura; Z37.0 Single live birth; Z20.822 Contact with and (suspected) exposure to COVID-19; O99.284 Endocrine, nutritional and metabolic diseases complicating childbirth; E03.9 Hypothyroidism, unspecified; O99.214 Obesity complicating childbirth; Z3A.39 39 weeks gestation of pregnancy
CPT/HCPCS: 36415; 59025; 59409; 82803; 85014; 85018; 85027; 86592; 86850; 86900; 86901; A9270-GY; J2590; J2795; J7120; U0002

== ENCOUNTER 2022-12-15 07:58 | Day surgery (SDC) | payer BC ==
[~2022-12-15 07:58] MED LIST changes: +Albuterol 0.083% 2.5 MG/3 ML Neb Soln NEB PRN; +HYDROmorphone 1 MG/ML Syringe IVPUSH PRN; -Lactated Ringers 1,000 ML IV SCH; +Metoclopramide 10 MG/2 ML SDV IVPUSH PRN; +Morphine 2 MG/ML SYRINGE IVPUSH PRN; +Naloxone 0.4 MG/ML SDV IVPUSH PRN; +Ondansetron 4 MG/2 ML SDV IVPUSH PRN; -Sodium Chloride 0.9% 10 ML SDV IV PRN; -Sodium Chloride 0.9% 10 ML Syringe FLUSH PRN; -Sodium Chloride 0.9% 2.5 ML Syringe FLUSH PRN; +fentaNYL 50 MCG/ML SDV IVPUSH PRN
[2022-12-15] MEDS ORDERED: Lactated Ringers 1,000 ML IV SCH (08:45)
[2022-12-15] MEDS ORDERED: Lidocaine 2% 5 ML SDV ONE (09:21)
[2022-12-15] MEDS ORDERED: fentaNYL 100 MCG/2 ML SDV ONE ×2 (09:21→09:50)
[2022-12-15] MEDS ORDERED: Propofol 200 MG/20 ML SDV ONE (09:21)
[2022-12-15] MEDS ORDERED: Ondansetron 4 MG/2 ML SDV ONE (09:21)
[2022-12-15] MEDS ORDERED: Dexamethasone 4 MG/ML 5 ML MDV ONE (09:21)
[2022-12-15] MEDS ORDERED: Tranexamic Acid 1,000 MG/10 ML Vial ONE (09:40)
[2022-12-15] MEDS ORDERED: Methylergonovine 0.2 MG/1 ML Amp ONE (09:56)
[2022-12-15 13:28] VITALS: BP 104/59; PULSE 64
== END 2022-12-15 12:45 | disposition home or self-care (01) ==
LOC: MW.SDS 07:58
PROVIDERS: ATTEND Obstetrics & Gynecology
DX: O02.1 Missed abortion (principal); D69.6 Thrombocytopenia, unspecified; E03.9 Hypothyroidism, unspecified; E66.9 Obesity, unspecified; Z79.890 Hormone replacement therapy; Z91.018 Allergy to other foods
CPT/HCPCS: 36415; 36430; 59820; 84702; 85027; 86850; 86900; 86901; J0131; J1100; J2210; J2405; J2704; J3010; J7120; P9034; 01965; J3490

== ENCOUNTER 2023-11-01 17:20 | Emergency (ER) | payer BC ==
[2023-11-01] MEDS ORDERED: Meclizine 25 MG Tab PO ONE (17:38)
[2023-11-01] MEDS ORDERED: Sodium Chloride 0.9% 10 ML Syringe FLUSH PRN (17:38)
[2023-11-01] MEDS ORDERED: Sodium Chloride 0.9% 2.5 ML Syringe FLUSH PRN (17:38)
[2023-11-01] MEDS ORDERED: Aspirin 81 MG Tab.Chew PO ONE (17:38)
[2023-11-01 18:18] LABS: BASOPHILS PERCENT AUTO 1.2 % (0.0-1.0); EOSINOPHILS ABSOLUTE AUTO 0.21 K/uL (0.00-0.45); EOSINOPHILS PERCENT AUTO 2.5 % (0.0-6.0); HEMATOCRIT 37.2 % (37.0-47.0); HEMOGLOBIN 13.2 g/dL (12.0-16.0); IMMATURE GRAN ABSOLUTE AUTO 0.02 K/uL (0.00-0.05); IMMATURE GRAN PERCENT AUTO 0.2 % (0.0-0.4); LYMPHOCYTES ABSOLUTE AUTO 2.91 K/uL (1.00-4.80); LYMPHOCYTES PERCENT AUTO 34.9 % (24.0-44.0); MEAN CORPUSCULAR HEMOGLOBIN 30.5 pg (28.0-32.0); MEAN CORPUSCULAR HGB CONC 35.5 g/dL (32.0-36.0); MEAN CORPUSCULAR VOLUME 85.9 fL (83.0-99.0); MEAN PLATELET VOLUME 14.5 fL (9.4-12.3); NEUTROPHILS PERCENT AUTO 55.2 % (41.0-71.0); PLATELET COUNT,PLT 60 K/uL (150-400); RED BLOOD CELL COUNT 4.33 M/uL (4.10-5.30); WHITE BLOOD CELL COUNT,WBC 8.34 K/uL (3.9-11.3)
[2023-11-01 18:26] LABS: A/G RATIO 0.8 (0.9-1.6); ALANINE AMINOTRANSFERASE,ALT 24 IU/L (14-63); ALBUMIN 3.6 g/dL (3.4-5.0); ALKALINE PHOSPHATASE 87 U/L (46-116); ASPARTATE AMNIOTRANSFERASE,AST 26 IU/L (15-37); BILIRUBIN TOTAL 0.3 mg/dL (0.2-1.0); BLOOD UREA NITROGEN,BUN 15 mg/dL (7.0-18.0); CALCIUM 9.2 mg/dL (8.5-10.1); CARBON DIOXIDE,CO2 24.9 mmol/L (21.0-32.0); CHLORIDE,CL 103 mmol/L (98-107); CREATININE 0.8 mg/dL (0.6-1.0); EST CRCL DRUG DOSING (CG) 76.55 mL/min; GLUCOSE RANDOM 75 mg/dL (74-106); POTASSIUM,K 3.8 mmol/L (3.5-5.1); PROTEIN TOTAL,TP 7.9 g/dL (6.4-8.2); SODIUM,NA 139 mmol/L (136-145); TSH ULTRASENSITIVE 6.73 uIU/mL (0.36-3.74)
[2023-11-01 18:30] LABS: ESTIMATED GFR 95 mL/min (>60)
[2023-11-01 18:57] LABS: T4 FREE 0.92 ng/dL (0.76-1.46)
[2023-11-01 19:20] VITALS: BP 120/81; PULSE 64
== END 2023-11-01 19:19 | disposition home or self-care (01) ==
LOC: MW.ED 17:20
DX: R07.89 Other chest pain (principal); R42 Dizziness and giddiness; E03.9 Hypothyroidism, unspecified; Z79.899 Other long term (current) drug therapy; Z91.018 Allergy to other foods
CPT/HCPCS: 36415; 71045; 80053; 84439; 84443; 84484; 85025; 85379; 93005; 99285; A9270; J3490; 93010; 99283

== ENCOUNTER 2024-03-02 08:37 | Day surgery (SDC) | payer BC ==
[~2024-03-02 08:37] MED LIST changes: -Albuterol 0.083% 2.5 MG/3 ML Neb Soln NEB PRN; -HYDROmorphone 1 MG/ML Syringe IVPUSH PRN; -Metoclopramide 10 MG/2 ML SDV IVPUSH PRN; -Morphine 2 MG/ML SYRINGE IVPUSH PRN; -Naloxone 0.4 MG/ML SDV IVPUSH PRN; -Ondansetron 4 MG/2 ML SDV IVPUSH PRN; +Sodium Chloride 0.9% 10 ML Syringe FLUSH PRN; +Sodium Chloride 0.9% 2.5 ML Syringe FLUSH PRN; +Sodium Chloride 0.9% 20 ML SDV IV PRN; -fentaNYL 50 MCG/ML SDV IVPUSH PRN
[2024-03-02] MEDS: Lactated Ringers 1,000 ML IV SCH (09:54)
[2024-03-02] MEDS ORDERED: propofoL 50 ML ONE (10:56)
[2024-03-02] MEDS ORDERED: dexmedeTOMIDine HCl 200 MCG/2 ML SDV ONE (10:57)
[2024-03-02 11:38] VITALS: PULSE 54
[2024-03-02 11:47] VITALS: BP 117/74
== END 2024-03-02 12:18 | disposition home or self-care (01) ==
LOC: MW.SDS 08:37
PROVIDERS: ATTEND Surgery
DX: K29.50 Unspecified chronic gastritis without bleeding (principal); K51.40 Inflammatory polyps of colon without complications; K21.9 Gastro-esophageal reflux disease without esophagitis; E03.9 Hypothyroidism, unspecified; Z79.890 Hormone replacement therapy; Z79.899 Other long term (current) drug therapy
CPT/HCPCS: 43239; 45380; 81025; J2704; J7120; 00813; J3490

== ENCOUNTER 2024-08-16 14:48 | Observation (INO) | payer BC ==
[2024-08-16 15:11] LABS: BASOPHILS ABSOLUTE AUTO 0.11 K/uL (0.00-0.20); EOSINOPHILS ABSOLUTE AUTO 0.08 K/uL (0.00-0.45); EOSINOPHILS PERCENT AUTO 0.7 % (0.0-6.0); HEMATOCRIT 40.2 % (37.0-47.0); HEMOGLOBIN 13.7 g/dL (12.0-16.0); IMMATURE GRAN ABSOLUTE AUTO 0.05 K/uL (0.00-0.05); IMMATURE GRAN PERCENT AUTO 0.5 % (0.0-0.4); LYMPHOCYTES ABSOLUTE AUTO 3.11 K/uL (1.00-4.80); LYMPHOCYTES PERCENT AUTO 28.3 % (24.0-44.0); MEAN CORPUSCULAR HEMOGLOBIN 29.8 pg (28.0-32.0); MEAN CORPUSCULAR HGB CONC 34.1 g/dL (32.0-36.0); MEAN CORPUSCULAR VOLUME 87.4 fL (83.0-99.0); MEAN PLATELET VOLUME 12.4 fL (9.4-12.3); MONOCYTES PERCENT AUTO 5.5 % (0.0-8.0); NEUTROPHILS ABSOLUTE AUTO 7.03 K/uL (1.80-7.70); PLATELET COUNT,PLT 192 K/uL (150-400); WHITE BLOOD CELL COUNT,WBC 10.98 K/uL (3.9-11.3)
[2024-08-16] MEDS: Iopamidol 755 MG/ML 500 ML Multipack Bottle IVPUSH STA (15:23)
[2024-08-16 15:41] LABS: ALANINE AMINOTRANSFERASE,ALT 29 IU/L (14-63); ALBUMIN 3.7 g/dL (3.4-5.0); ALKALINE PHOSPHATASE 78 U/L (46-116); ASPARTATE AMNIOTRANSFERASE,AST 20 IU/L (15-37); BILIRUBIN TOTAL 0.2 mg/dL (0.2-1.0); BLOOD UREA NITROGEN,BUN 13 mg/dL (7.0-18.0); CALCIUM 9.2 mg/dL (8.5-10.1); CHLORIDE,CL 103 mmol/L (98-107); CREATININE 0.8 mg/dL (0.6-1.0); ESTIMATED GFR 94 mL/min (>60); GLUCOSE RANDOM 115 mg/dL (74-106); LIPASE 41 U/L (16-77); POTASSIUM,K 3.6 mmol/L (3.5-5.1); PROTEIN TOTAL,TP 7.4 g/dL (6.4-8.2); SODIUM,NA 139 mmol/L (136-145)
[2024-08-16] MEDS: Aspirin 81 MG Tab.Chew PO ONE (16:45)
[2024-08-16] MEDS: Clopidogrel 75 MG Tab PO ONE (16:46)
[2024-08-16] MEDS ORDERED: Ondansetron 4 MG Tab.DIS PO PRN (17:21)
[2024-08-16] MEDS ORDERED: Bisacodyl 5 MG Tab PO PRN (17:21)
[2024-08-16] MEDS ORDERED: Acetaminophen 325 MG Tab PO PRN (17:21)
[2024-08-16] MEDS ORDERED: Polyethylene Glycol 3350 Powder 17 GM Packet PO PRN (17:21)
[2024-08-16] MEDS ORDERED: Melatonin 3 MG Tab PO PRN (17:21)
[2024-08-16 18:03] LABS: TSH ULTRASENSITIVE 3.99 uIU/mL (0.36-3.74)
[2024-08-16] MEDS ORDERED: LORazepam 0.5 MG Tab PO ONE (18:04)
[2024-08-16 18:06] LABS: HEMOGLOBIN A1C 5.6 %
[2024-08-16 18:30] LABS: T4 FREE 1.11 ng/dL (0.76-1.46)
[2024-08-17] MEDS: Levothyroxine 150 MCG Tab PO SCH (06:34)
[2024-08-17 06:59] LABS: BASOPHILS ABSOLUTE AUTO 0.09 K/uL (0.00-0.20); BASOPHILS PERCENT AUTO 0.9 % (0.0-1.0); EOSINOPHILS ABSOLUTE AUTO 0.15 K/uL (0.00-0.45); EOSINOPHILS PERCENT AUTO 1.5 % (0.0-6.0); HEMATOCRIT 37.5 % (37.0-47.0); HEMOGLOBIN 12.5 g/dL (12.0-16.0); IMMATURE GRAN ABSOLUTE AUTO 0.04 K/uL (0.00-0.05); IMMATURE GRAN PERCENT AUTO 0.4 % (0.0-0.4); LYMPHOCYTES ABSOLUTE AUTO 3.82 K/uL (1.00-4.80); LYMPHOCYTES PERCENT AUTO 37.7 % (24.0-44.0); MEAN CORPUSCULAR HEMOGLOBIN 29.4 pg (28.0-32.0); MEAN CORPUSCULAR HGB CONC 33.3 g/dL (32.0-36.0); MEAN CORPUSCULAR VOLUME 88.2 fL (83.0-99.0); MEAN PLATELET VOLUME 12.2 fL (9.4-12.3); MONOCYTES ABSOLUTE AUTO 0.62 K/uL (0.00-0.80); MONOCYTES PERCENT AUTO 6.1 % (0.0-8.0); NEUTROPHILS ABSOLUTE AUTO 5.42 K/uL (1.80-7.70); NEUTROPHILS PERCENT AUTO 53.4 % (41.0-71.0); PLATELET COUNT,PLT 160 K/uL (150-400); RED BLOOD CELL COUNT 4.25 M/uL (4.10-5.30); WHITE BLOOD CELL COUNT,WBC 10.14 K/uL (3.9-11.3)
[2024-08-17 07:14] LABS: A/G RATIO 0.9 (0.9-1.6); ALBUMIN 3.1 g/dL (3.4-5.0); BILIRUBIN TOTAL 0.3 mg/dL (0.2-1.0); CALCIUM 8.6 mg/dL (8.5-10.1); CARBON DIOXIDE,CO2 25.9 mmol/L (21.0-32.0); CREATININE 0.7 mg/dL (0.6-1.0); EST CRCL DRUG DOSING (CG) 82.8 mL/min; POTASSIUM,K 4.1 mmol/L (3.5-5.1); PROTEIN TOTAL,TP 6.5 g/dL (6.4-8.2)
[2024-08-17] MEDS: LORazepam 0.5 MG Tab PO SCH (11:33)
[2024-08-17] MEDS: Gadobenate Dimeglumine 529 MG/ML 20 ML SDV IVPUSH ONE (14:37)
[2024-08-17] MEDS ORDERED: LORazepam 0.5 MG Tab PO ONE (15:00)
[2024-08-17 18:52] VITALS: BP 129/91; PULSE 71
== END 2024-08-17 18:43 | disposition home or self-care (01) ==
LOC: MW.ED 14:48 → MW.MS 16:31
PROVIDERS: ADMIT Internal Medicine; ATTEND Internal Medicine
DX: G45.9 Transient cerebral ischemic attack, unspecified (principal); E03.9 Hypothyroidism, unspecified; Z79.890 Hormone replacement therapy; Z79.899 Other long term (current) drug therapy
CPT/HCPCS: 36415; 70450; 70496; 70498; 70549; 70553; 71045; 80053; 80061; 82947; 83036; 83690; 84439; 84443; 84484; 85025; 85610; 93005; 97161; 97165; 99285; A9270; A9577; G0378; Q9967; 93010

== ENCOUNTER 2025-01-17 09:41 | Emergency (ER) | payer BC ==
[2025-01-17] MEDS: Sodium Chloride 0.9% 1,000 ML IV ONE (10:17)
[2025-01-17] MEDS: Ketorolac 30 MG/ML SDV IVPUSH ONE (10:17)
[2025-01-17 10:22] LABS: BASOPHILS ABSOLUTE AUTO 0.07 K/uL (0.00-0.20); EOSINOPHILS ABSOLUTE AUTO 0.09 K/uL (0.00-0.45); EOSINOPHILS PERCENT AUTO 1.3 % (0.0-6.0); HEMATOCRIT 39.4 % (37.0-47.0); HEMOGLOBIN 13.5 g/dL (12.0-16.0); IMMATURE GRAN ABSOLUTE AUTO 0.03 K/uL (0.00-0.05); IMMATURE GRAN PERCENT AUTO 0.4 % (0.0-0.4); LYMPHOCYTES ABSOLUTE AUTO 2.09 K/uL (1.00-4.80); LYMPHOCYTES PERCENT AUTO 29.8 % (24.0-44.0); MEAN CORPUSCULAR HEMOGLOBIN 30.1 pg (28.0-32.0); MEAN CORPUSCULAR HGB CONC 34.3 g/dL (32.0-36.0); MEAN CORPUSCULAR VOLUME 87.8 fL (83.0-99.0); MEAN PLATELET VOLUME 14.4 fL (9.4-12.3); MONOCYTES ABSOLUTE AUTO 0.36 K/uL (0.00-0.80); MONOCYTES PERCENT AUTO 5.1 % (0.0-8.0); NEUTROPHILS ABSOLUTE AUTO 4.38 K/uL (1.80-7.70); NEUTROPHILS PERCENT AUTO 62.4 % (41.0-71.0); PLATELET COUNT,PLT 74 K/uL (150-400); RED BLOOD CELL COUNT 4.49 M/uL (4.10-5.30); WHITE BLOOD CELL COUNT,WBC 7.02 K/uL (3.9-11.3)
[2025-01-17] MEDS: Morphine 2 MG/ML SYRINGE IVPUSH ONE (10:27)
[2025-01-17] MEDS: Ondansetron 4 MG/2 ML SDV IVPUSH ONE (10:27)
[2025-01-17 11:00] LABS: A/G RATIO 0.9 (0.9-1.6); ALANINE AMINOTRANSFERASE,ALT 19 IU/L (14-63); ALBUMIN 3.5 g/dL (3.4-5.0); ALKALINE PHOSPHATASE 79 U/L (46-116); ASPARTATE AMNIOTRANSFERASE,AST 21 IU/L (15-37); BILIRUBIN TOTAL 0.4 mg/dL (0.2-1.0); BLOOD UREA NITROGEN,BUN 11 mg/dL (7.0-18.0); CARBON DIOXIDE,CO2 26.6 mmol/L (21.0-32.0); CHLORIDE,CL 105 mmol/L (98-107); CREATININE 0.8 mg/dL (0.6-1.0); EST CRCL DRUG DOSING (CG) 72.45 mL/min; GLUCOSE RANDOM 106 mg/dL (74-106); MAGNESIUM 1.8 mg/dL (1.8-2.4); POTASSIUM,K 3.8 mmol/L (3.5-5.1); PROTEIN TOTAL,TP 7.3 g/dL (6.4-8.2); SODIUM,NA 142 mmol/L (136-145); TSH ULTRASENSITIVE 13.07 uIU/mL (0.36-3.74)
[2025-01-17 11:01] LABS: ESTIMATED GFR 94 mL/min (>60)
[2025-01-17 12:18] LABS: T3 FREE 2.32 pg/mL (2.18-3.98); T4 FREE 0.82 ng/dL (0.76-1.46)
[2025-01-17 12:41] VITALS: BP 142/87; PULSE 60
== END 2025-01-17 12:41 | disposition home or self-care (01) ==
LOC: MW.ED 09:41
DX: R07.9 Chest pain, unspecified (principal); E03.9 Hypothyroidism, unspecified; Z79.890 Hormone replacement therapy; Z79.899 Other long term (current) drug therapy
CPT/HCPCS: 36415; 71045; 80053; 83735; 84439; 84443; 84481; 84484; 85025; 93005; 96361; 96374; 96375; 99285; J2270; J2405; J7030; 93010; 99284; J1885

== ENCOUNTER 2025-06-08 10:50 | Emergency (ER) | payer BC ==
[2025-06-08] MEDS ORDERED: Sodium Chloride 0.9% 2.5 ML Syringe FLUSH PRN (11:03)
[2025-06-08] MEDS ORDERED: Sodium Chloride 0.9% 10 ML Syringe FLUSH PRN (11:03)
[2025-06-08 11:18] LABS: BASOPHILS ABSOLUTE AUTO 0.10 K/uL (0.00-0.20); BASOPHILS PERCENT AUTO 1.4 % (0.0-1.0); EOSINOPHILS ABSOLUTE AUTO 0.15 K/uL (0.00-0.45); EOSINOPHILS PERCENT AUTO 2.0 % (0.0-6.0); IMMATURE GRAN ABSOLUTE AUTO 0.02 K/uL (0.00-0.05); IMMATURE GRAN PERCENT AUTO 0.3 % (0.0-0.4); LYMPHOCYTES ABSOLUTE AUTO 2.66 K/uL (1.00-4.80); LYMPHOCYTES PERCENT AUTO 36.0 % (24.0-44.0); MEAN PLATELET VOLUME 14.5 fL (9.4-12.3); MONOCYTES ABSOLUTE AUTO 0.50 K/uL (0.00-0.80); MONOCYTES PERCENT AUTO 6.8 % (0.0-8.0); NEUTROPHILS ABSOLUTE AUTO 3.95 K/uL (1.80-7.70); NEUTROPHILS PERCENT AUTO 53.5 % (41.0-71.0); NRBC ABSOLUTE 0.00 K/uL (0.00-0.02); NRBC PERCENT 0.0 /100WBC (0.0-0.2); PLATELET COUNT,PLT 76 K/uL (150-400); RED BLOOD CELL COUNT 4.55 M/uL (4.10-5.30); WHITE BLOOD CELL COUNT,WBC 7.38 K/uL (3.9-11.3)
[2025-06-08 11:35] LABS: INR 1.03 (0.86-1.11); PTT,PARTIAL THROMBOPLSTIN TIME 28.5 SEC (23.9-30.7)
[2025-06-08 12:02] LABS: GLUCOSE,URINE NEGATIVE (NEGATIVE); OCCULT BLOOD,URINE LARGE (NEGATIVE)
[2025-06-08 12:07] LABS: APPEARANCE,URINE HAZY
[2025-06-08 12:10] LABS: EPITHELIAL CELLS,URINE MODERATE (NONE-FEW)
[2025-06-08 12:10] LABS: A/G RATIO 1.0 (0.9-1.6); ALANINE AMINOTRANSFERASE,ALT 23 IU/L (14-63); ASPARTATE AMNIOTRANSFERASE,AST 21 IU/L (15-37); BILIRUBIN TOTAL 0.3 mg/dL (0.2-1.0); BLOOD UREA NITROGEN,BUN 12 mg/dL (7.0-18.0); CARBON DIOXIDE,CO2 24.7 mmol/L (21.0-32.0); CHLORIDE,CL 103 mmol/L (98-107); CREATININE 0.8 mg/dL (0.6-1.0); EST CRCL DRUG DOSING (CG) 72.45 mL/min; GLUCOSE RANDOM 87 mg/dL (74-106); POTASSIUM,K 3.8 mmol/L (3.5-5.1); PROTEIN TOTAL,TP 7.6 g/dL (6.4-8.2); SODIUM,NA 140 mmol/L (136-145); TSH ULTRASENSITIVE 5.11 uIU/mL (0.36-3.74)
[2025-06-08 12:12] LABS: ESTIMATED GFR 94 mL/min (>60)
[2025-06-08] MEDS: LORazepam 2 MG/ML SDV IVPUSH ONE (12:33)
[2025-06-08] MEDS: Iopamidol 755 MG/ML 500 ML Multipack Bottle IVPUSH STA (12:52)
[2025-06-08 14:37] VITALS: BP 135/84; PULSE 58
== END 2025-06-08 14:37 | disposition home or self-care (01) ==
LOC: MW.ED 10:50
DX: R53.1 Weakness (principal); R07.9 Chest pain, unspecified; E03.9 Hypothyroidism, unspecified; Z90.49 Acquired absence of other specified parts of digestive tract; Z86.73 Personal history of transient ischemic attack (TIA), and cerebral infarction without residual deficits; Z79.890 Hormone replacement therapy; Z75.3 Unavailability and inaccessibility of health-care facilities
CPT/HCPCS: 36415; 70450; 70496; 70498; 70551; 71045; 80053; 81001; 83735; 84443; 84484; 85025; 85610; 85730; 93005; 96361; 96374; 99285; J2060; J7030; Q9967; 93010; 99284